=== PATIENT | male | born 2000 | race Asian ===

== ENCOUNTER 2023-07-16 22:30 | Emergency (ER) | payer OTHER ==
[~2023-07-16] VITALS: Ht 177.8 cm; Wt 81.3 kg
[2023-07-16 22:31] VITALS: BP 129/60; TEMP 98.7; O2SAT 98
== END 2023-07-17 03:23 | disposition home or self-care (01) ==
LOC: M ED 22:30
DX: M79.605 Pain in left leg (principal)

== ENCOUNTER 2023-11-17 18:01 | Emergency (ER) | payer OTHER ==
[~2023-11-17] VITALS: Ht 177.8 cm; Wt 81.8 kg
[2023-11-17 20:05] VITALS: BP 120/62; TEMP 97.4; O2SAT 97
[2023-11-17] MEDS: ACETAMINOPHEN 500 MG TAB PO ONE (20:25)
[2023-11-17] MEDS: CEPHALEXIN 500 MG CAP PO ONE (20:25)
[2023-11-17] MEDS ORDERED: CEPH500C PO (20:31)
[2023-11-17] MEDS ORDERED: IBUP-1022 PO (20:31)
== END 2023-11-17 20:43 | disposition home or self-care (01) ==
LOC: M ED 18:01
DX: S90.31XA Contusion of right foot, initial encounter (principal); S99.921A Unspecified injury of right foot, initial encounter; W20.8XXA Other cause of strike by thrown, projected or falling object, initial encounter; Y92.9 Unspecified place or not applicable; Y93.9 Activity, unspecified; Y99.1 Military activity; Z88.2 Allergy status to sulfonamides